=== PATIENT | female | born 1960 | race Caucasian/White ===

== ENCOUNTER 2021-05-22 15:49 | Outpatient (CLI) | payer BC | END 2021-05-22 15:50 | disposition home or self-care (01) | LOC: TBSIIMAG 15:49 | PROVIDERS: ATTEND Neurological Surgery | DX: M25.552 Pain in left hip (principal); M25.511 Pain in right shoulder; M54.5 Low back pain; M54.2 Cervicalgia; M25.551 Pain in right hip; M47.813 Spondylosis without myelopathy or radiculopathy, cervicothoracic region; M43.13 Spondylolisthesis, cervicothoracic region; M43.16 Spondylolisthesis, lumbar region | CPT/HCPCS: 72040; 72100 ==

== ENCOUNTER 2021-07-16 13:44 | Outpatient (CLI) | payer BC | END 2021-07-16 13:45 | disposition home or self-care (01) | LOC: CTENTCT 13:44 | PROVIDERS: ATTEND Otolaryngology Plastic Surgery within the Head & Neck | DX: J32.9 Chronic sinusitis, unspecified (principal) | CPT/HCPCS: 70486 ==